=== PATIENT | female | born 2000 | race Caucasian/White ===

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

== ENCOUNTER 2020-05-15 12:17 | Emergency (ER) | payer MEDICAID ==
[~2020-05-15] VITALS: Ht 10.2 cm; Wt 94.8 kg
[2020-05-15 12:23] VITALS: BP 145/75; Ht 10.2 cm; Wt 94.8 kg
== END 2020-05-15 14:49 | disposition home or self-care (01) ==
LOC: ED 12:17
DX: J03.90 Acute tonsillitis, unspecified (principal); F17.210 Nicotine dependence, cigarettes, uncomplicated; E66.01 Morbid (severe) obesity due to excess calories; Z68.35 Body mass index [BMI] 35.0-35.9, adult; Z88.0 Allergy status to penicillin; Z88.1 Allergy status to other antibiotic agents
CPT/HCPCS: 99406; J1100

== ENCOUNTER 2020-11-19 21:09 | Emergency (ER) | payer MEDICAID ==
[~2020-11-19] VITALS: Ht 157.5 cm; Wt 96.6 kg
[2020-11-19 21:48] VITALS: Ht 157.5 cm; Wt 96.6 kg
[2020-11-20] MEDS ORDERED: CLINDAMYCIN HC150 MG PO (00:39)
[2020-11-20] MEDS ORDERED: MOT600 PO (00:41)
[2020-11-20] MEDS ORDERED: ZOFRAN4 M3 PO (00:41)
[2020-11-20 01:59] VITALS: BP 105/54
== END 2020-11-20 01:50 | disposition home or self-care (01) ==
LOC: ED 21:09
DX: S01.511A Laceration without foreign body of lip, initial encounter (principal); F07.81 Postconcussional syndrome; Z88.0 Allergy status to penicillin; Z88.1 Allergy status to other antibiotic agents; W18.30XA Fall on same level, unspecified, initial encounter; Y93.89 Activity, other specified; Y92.89 Other specified places as the place of occurrence of the external cause; Y99.8 Other external cause status